=== PATIENT | female | born 1995 | race Caucasian/White ===

== ENCOUNTER 2018-11-22 21:32 | Emergency (ER) | payer MEDICAID ==
[~2018-11-22] VITALS: Ht 162.6 cm; Wt 99.8 kg
[2018-11-22 21:42] VITALS: BP 110/78
--- NOTE | 2018-11-22 21:42 | NUR ---
PATIENT AMBULATED TO ER BED 6.
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
[2018-11-22] MEDS ORDERED: SILVER SULFADIAZINE 1% 50 GM JAR TP ONE (22:25)
[2018-11-22 22:35] VITALS: BP 110/78
--- NOTE | 2018-11-22 22:40 | NUR ---
Patient discharged with v/s stable. Written and verbal after care instructions given and explained BY DR GUNTER. Patient alert, oriented and verbalized understanding of instructions. Ambulatory with steady gait. All questions addressed prior to discharge. ID band removed. Patient advised to follow up with PMD. Rx of NEOSPORIN given. Patient educated on indication of medication including possible reaction and side effects BY DR. GUNTER. Opportunity to ask questions provided and answered, BY DR GUNTER.
== END 2018-11-22 22:48 | disposition home or self-care (01) ==
LOC: MED 21:32
DX: T21.22XA Burn of second degree of abdominal wall, initial encounter (principal); X11.8XXA Contact with other hot tap-water, initial encounter; Y93.89 Activity, other specified; Y92.89 Other specified places as the place of occurrence of the external cause; Y99.8 Other external cause status
CPT/HCPCS: 16020; 99284